=== PATIENT | male | born 1990 ===

== ENCOUNTER 2022-12-28 18:14 | Emergency (ER) | payer SELFPAY | END 2022-12-28 18:58 | disposition home or self-care (01) | LOC: ERS 18:14 | DX: R59.0 Localized enlarged lymph nodes (principal) | CPT/HCPCS: 99282 ==

== ENCOUNTER 2023-01-06 09:27 | Emergency (ER) | payer SELFPAY ==
[2023-01-06] MEDS ORDERED: Ketorolac Tromethamine 30 MG/ML VIAL ONE (10:16)
[2023-01-06 10:33] LABS: #Eosinphils 0.1 thou/uL (0.0-0.7); #Monocytes 0.6 thou/uL (0.11-0.59); #Neutrophils 6.9 thou/uL (1.40-6.50); %Basophils 0.1 % (0.0-1.0); %Eosinophils 0.6 % (0.0-10.0); %Lymphocytes 14.4 % (21.0-51.0); %Neutrophils 77.7 % (42.0-75.0); Mean Corpuscular Hemoglobin 30.2 pg (27.0-31.0); Mean Platelet Volume 10.2 fL (7.4-10.4); Platelet Count 240 10x3/uL (130-400); RBC Distribution Width 12.1 % (11.5-14.5); Red Blood Cell (RBC) Count 5.62 mill/uL (4.70-6.10); White Blood Cell (WBC) Count 8.9 10x3/uL (4.8-10.8)
[2023-01-06] MEDS ORDERED: Iopamidol-370 76% 500 ML MDV (1 ML CHARGE) ONE (10:56)
[2023-01-06 11:03] LABS: Anion Gap 12 mmol/L (10-20); BUN (Urea Nitrogen) 16 mg/dL (8.9-20.6); Calc. Creatinine Clearance 0 mL/min (70-130); Carbon Dioxide 28 mmol/L (22-29); Chloride 103 mmol/L (98-107); Potassium 3.9 mmol/L (3.5-5.1); Sodium 139 mmol/L (136-145)
[2023-01-06 11:04] LABS: ALT (SGPT) 14 U/L (8-55); AST (SGOT) 19 U/L (5-34); Albumin 5.1 g/dL (3.5-5.0); Alkaline Phosphatase 69 U/L (40-110); Bilirubin, Total 1.1 mg/dL (0.2-1.2); Calcium 10.3 mg/dL (7.8-10.44); Estimated GFR 118; Globulin 2.8 g/dL (2.4-3.5); Glucose 97 mg/dL (70-105); Protein, Total 7.9 g/dL (6.0-8.3)
== END 2023-01-06 12:26 | disposition home or self-care (01) ==
LOC: ERS 09:27
DX: R59.0 Localized enlarged lymph nodes (principal)
CPT/HCPCS: 74177; 80053; 85025; 96374; J1885; Q9967

== ENCOUNTER 2023-02-13 14:50 | Emergency (ER) | payer SELFPAY | END 2023-02-13 17:20 | disposition home or self-care (01) | LOC: ERS 14:50 | DX: H61.22 Impacted cerumen, left ear (principal) | CPT/HCPCS: 69209 ==

== ENCOUNTER 2023-11-08 23:32 | Emergency (ER) | payer SELFPAY ==
[2023-11-09] MEDS ORDERED: Ibuprofen 200 MG TAB ONE ×2 (00:57→01:17)
== END 2023-11-09 01:20 | disposition home or self-care (01) ==
LOC: ERS 23:32
DX: S60.222A Contusion of left hand, initial encounter (principal); X58.XXXA Exposure to other specified factors, initial encounter